=== PATIENT | female | born 1945 | race Caucasian/White ===

== ENCOUNTER → 2017-06-22 | Outpatient (CLI) | payer OTHER ==
[~2017-06-22] MED LIST: ACET-1256 PO; ATV5X PO; CZR50 PO; IBUP-1050 PO; LEVO50TA PO; SERT50TA PO; ULT50X PO
--- NOTE | 2017-06-22 11:58 | DIAGNOSTIC IMAGING REPORT ---
FLUOROSCOPICALLY GUIDED RIGHT HIP ANESTHETIC AND STEROID INJECTION CLINICAL HISTORY: DJD HIP right hip pain COMPARISON STUDY: Conventional radiographic study dated 05/11/2017 FLUOROSCOPY TIME: 10 seconds. NUMBER OF FLUOROSCOPIC IMAGES: 1 FINDINGS: A timeout was performed. The risks the procedure were explained the patient informed consent was obtained. The patient was prepped and draped in sterile fashion. The skin was best possible percent lidocaine. Under fluoroscopic guidance, 22-gauge spinal needle was introduced into the joint capsule. The location was documented with injection of Optiray 300. 2 cc of betamethasone, and 5 cc of 0.5% bupivacaine were then injected intra-articularly. The patient however the procedure well. There were no immediate complications. IMPRESSION: Successful fluoroscopically guided intra-articular right hip steroid and anesthetic injection. Electronically signed by: Eamon Lawrence M.D. 06/22/2017 11:56 AM Dictated Date/Time: 06/22/2017 11:55 AM
== END | disposition home or self-care (01) ==
LOC: C.RADBC 11:01
PROVIDERS: ATTEND Orthopaedic Surgery
DX: M16.11 Unilateral primary osteoarthritis, right hip (principal)

== ENCOUNTER 2017-09-09 06:34 | Inpatient (IN) | payer OTHER ==
[2017-07-27 13:24] VITALS: BMI 37.0
[2017-09-06 14:04] VITALS: BMI 38.0
--- NOTE | 2017-09-08 14:55 | HISTORY & PHYSICAL EXAMINATION ---
DATE OF ADMISSION: 09/09/2017 CHIEF COMPLAINT: Primary osteoarthritis of the right hip. HISTORY OF PRESENT ILLNESS: Geraldine is a pleasant 72-year-old female who has been having a several year history of right hip pain but it has got much worse over the past couple of months. X-rays and clinical examination have been diagnostic for primary osteoarthritis of the right hip. After failing extensive conservative treatment, she is elected to proceed with a right total hip arthroplasty. PAST MEDICAL HISTORY: Significant for hypothyroidism, depression, hypertension. MEDICATIONS: Include losartan, Zoloft, Synthroid, lorazepam, Celebrex. PAST SURGICAL HISTORY: Significant for a partial hysterectomy, tumors removed from her neck, right total knee arthroplasty, thyroid biopsy and a breast biopsy. ALLERGIES: NICKEL. FAMILY HISTORY: Significant for diabetes and heart disease. SOCIAL HISTORY: Patient is , has 4 kids. Remains active. REVIEW OF SYSTEMS: She complains of right hip pain. All the pertinent review of systems are negative. PHYSICAL EXAMINATION: GENERAL: She is awake, alert and orient x3. She is in no apparent distress. She is very pleasant. HEENT: Pupils equal, round, reactive to light. Extraocular movements are intact. Oral mucosa pink and moist. HEART: Regular rate per radial pulse. LUNGS: Maty symmetrically bilaterally with no audible breath sounds. ABDOMEN: Soft, nontender, nondistended. MUSCULOSKELETAL: On physical examination of her hip, she ambulates independently. Her leg lengths are essentially equal. She has limited internal and external rotation with reproducible symptoms deep within her groin. She has no tenderness to palpation of the greater trochanteric bursa. IMAGING DATA: X-rays of the right hip show advanced osteoarthritis with joint space narrowing, osteophyte formation and [id number] articulating. IMPRESSION: Primary osteoarthritis of the right hip. PLAN: We will proceed with a right lateral total hip arthroplasty. Postoperatively, she will be started on aspirin for DVT prophylaxis and kept in the hospital for postop medical management. She is planning to go to [facility] postoperatively for physical therapy.
[2017-09-09] VITALS (8 sets, daily range): BP systolic 92–147; BP diastolic 57–74; PULSE 57–78; TEMP 36.3–36.8; O2SAT 95–100; Ht 162.6 cm; Wt 100.4 kg
[~2017-09-09] VITALS: Ht 162.6 cm; Wt 100.4 kg
--- NOTE | 2017-09-09 06:32 | History & Physical Bridge Note ---
H&P Re-Evaluation Bridge Note: I have examined the patient, reviewed the History & Physical and in the interval since the performance of the History & Physical I have noted the following changes of clinical significance: No changes noted
[~2017-09-09 06:34] MED LIST changes: +ACETAMINOPHEN 500 MG TAB PO SCH; +CEFAZOLIN 2000MG IV PUSH 15 ML IV SCH; +CLB/200 PO; +FAMOTIDINE 20 MG TAB PO SCH; +GABAPENTIN 300 MG CAP PO SCH; -IBUP-1050 PO; +LACTATED RINGER'S 1000ML 1,000 ML IV SCH; +LACTATED RINGER'S 1000ML IV SCH; +LACTATED RINGER'S 500 ML IV SCH; +ROPIVACAINE 5MG/ML 30 ML 150 MG, BUPIVACAINE 0.5% MPF INJ 30 ML, EpINEphrine HCL INJ 0.... INFIL SCH; -ULT50X PO
[2017-09-09] MEDS ORDERED: EpHEDrine SULFATE INJ 50 MG/ML AMP IV PRN (07:15)
[2017-09-09] MEDS ORDERED: FENTANYL CITRATE INJ 50 MCG/1 ML 2 ML VIAL IV PRN (07:15)
[2017-09-09] MEDS ORDERED: ONDANSETRON INJ 2 MG/ML 2 ML VIAL IV PRN ×2 (07:15→11:00)
[2017-09-09] MEDS ORDERED: ATROPINE SULFATE 0.1 MG/ML 5ML SYR IV PRN (07:15)
[2017-09-09] MEDS ORDERED: BUPIVACAINE 0.5 % 5 MG/1 ML PF 10ML VIAL ONE (07:22)
[2017-09-09] MEDS ORDERED: MIDAZOLAM HCL 1 MG/ML 2ML VIAL ONE ×2 (07:42→08:45)
[2017-09-09] MEDS ORDERED: FENTANYL CITRATE INJ 50 MCG/1 ML 2 ML VIAL ONE (07:43)
[2017-09-09] MEDS: TRANEXAMIC ACID INJ 1,000 MG x 2 Bags IV SCH ×4 (08:57→13:51)
[2017-09-09] MEDS ORDERED: BACITRACIN 50000 UNIT VIAL ONE (08:58)
[2017-09-09] MEDS ORDERED: ORTHO JOINT ANESTHETIC ONE (08:58)
[2017-09-09] MEDS ORDERED: PROPOFOL IV EMULSION 10 MG/ML 20 ML VIAL ONE (09:24)
[2017-09-09] MEDS ORDERED: PHENYLEPHRINE HCL INJ 10 MG/ML VIAL ONE (09:24)
[2017-09-09] MEDS ORDERED: EpHEDrine SULFATE 50MG/5ML SYR ONE (09:38)
--- NOTE | 2017-09-09 10:57 | [facility] Post Operative Brief Note ---
Immediate Operative Summary Operative Date Sep 09, 2017. Pre-Operative Diagnosis Primary Osteoarthritis, Right Hip Post-Operative Diagnosis Primary Osteoarthritis, Right Hip Procedure(s) Performed Right Anterior Total Hip Arthroplasty Surgeon Dr. Buddy Rodriguez Scarrer Surgeon(s) Hilario Gutierrez PA-C Estimated Blood Loss 250ML Findings Consistent with Post-Op Diagnosis Specimens Permanent Solution: A.) Right Femoral Head Anesthesia Type Spinal MAC
[2017-09-09] MEDS ORDERED: SOD PHOSPHATE/SOD BIPHOSPHATE ENEMA 132 ML BTL PR PRN (11:00)
[2017-09-09] MEDS ORDERED: BISACODYL 10 MG SUPP PR PRN (11:00)
[2017-09-09] MEDS ORDERED: LORAZEPAM 0.5 MG TAB PO PRN (11:00)
[2017-09-09] MEDS ORDERED: MoRPHine SULFATE 2 MG/ML CARP IV PRN (11:00)
[2017-09-09] MEDS ORDERED: MAGNESIUM HYDROXIDE SUSP 30 ML UDC PO PRN (11:00)
[2017-09-09] MEDS ORDERED: CEFAZOLIN IV 2,000 MG in DEXTROSE 5% 50ML 50 ML IV SCH (11:00)
[2017-09-09] MEDS ORDERED: HYDROCODONE/ACETAMIN 5/325MG TAB PO PRN (11:00)
[2017-09-09] MEDS ORDERED: METOCLOPRAMIDE HCL INJ 5 MG/ML 2 ML VIAL IV PRN (11:00)
--- NOTE | 2017-09-09 11:28 | DIAGNOSTIC IMAGING REPORT ---
R HIP UNILATERAL 1 VIEW CLINICAL HISTORY: RT ANTERIOR TOTAL Fluoroscopy time: 43 seconds. FINDINGS: A single fluoroscopic spot image of the right hip was submitted. There is a right total arthroplasty. The femoral prosthesis tip is not entirely excluded on this study. The visualized hardware appears intact. No fracture or dislocation. IMPRESSION: Intraoperative study provided for a right total arthroplasty. The hardware appears intact. Electronically signed by: Kelby Waddell M.D. 09/09/2017 11:27 AM Dictated Date/Time: 09/09/2017 11:26 AM
--- NOTE | 2017-09-09 11:45 | DIAGNOSTIC IMAGING REPORT ---
R PELVIS/UNILATERAL HIP 1 VIEW HISTORY: 72 years-old Female IN PACU - A/P PELVIS and LATERAL HIP INCLUDING ALL OF IMPLANT right hip total joint arthroplasty. Degenerative joint disease. COMPARISON: Right hip fluoroscopic images 09/09/2017 at 10:43 AM TECHNIQUE: Single AP view of the pelvis with crosstable lateral view of the right hip FINDINGS: Right hip total joint arthroplasty with satisfactory alignment. Lateral skin debora are noted in addition to expected postsurgical soft tissue swelling and deep tissue air. No acute fracture or retained foreign body. Surgical drainage catheter noted. Moderate left hip osteoarthritis. There are phleboliths noted about the pelvis. IMPRESSION: Right hip total joint arthroplasty with satisfactory alignment. The above report was generated using voice recognition software. It may contain grammatical, syntax or spelling errors. Electronically signed by: Sandeep Martinez M.D. 09/09/2017 11:43 AM Dictated Date/Time: 09/09/2017 11:42 AM
--- NOTE | 2017-09-09 12:08 | OPERATIVE REPORT ---
DATE OF OPERATION: 09/09/2017 PREOPERATIVE DIAGNOSIS: Primary osteoarthritis of the right hip. POSTOPERATIVE DIAGNOSIS: Primary osteoarthritis of the right hip. PROCEDURE: Right total hip arthroplasty. SURGEON: Dr. Buddy Rodriguez. PATIENT SERVICES ASSISTANT: Yovani Gutierrez PA-C, whose assistance was necessary for retraction and closure. ANESTHESIA: Spinal. COMPLICATIONS: None. CONDITION: Stable to PACU. IMPLANTS USED: A [employer]omet Taperloc total hip arthroplasty system with a size 50 G7 cup, a 30 mm screw, a 36 mm neutral E-poly liner, a size 6 standard offset Taperloc stem, and a 36 mm ceramic head with a -6 neck. INDICATIONS: Geraldine is a pleasant 72-year-old female who presented to my office with chronic increasing right hip and groin pain. X-rays and clinical examination were diagnostic for primary osteoarthritis of the right hip. After failing conservative treatment, she elected to undergo a right total hip arthroplasty. OPERATION AND FINDINGS: On 09/09/2017, she arrived at [facility] for the above procedure. She was seen in the preoperative holding area and the operative extremity was identified and signed. She was given a spinal anesthetic and a preoperative antibiotic. She was taken back to the operating room, laid on the table in supine position and given basic sedation. The right leg was then brought out to a purist leg positioner. The right hip was then prepped and draped in sterile fashion. Time-out was done. The patient's operative extremity was properly identified. An anterior approach was used. Dissection was taken down through the fascia and the tensor muscle belly was retracted laterally and the rectus was retracted medially. The circumflex vessels were then ligated. The capsule was then incised and tagged for later repair. The femoral neck was then resected along the intertrochanteric line and the femoral head was removed. The acetabular labrum was then completely released and sequential reaming of the acetabulum up to a 49 reamer was done. Final reamings were done under fluoroscopy to ensure appropriate version. A size 50 G7 cup was then impacted into place. A single 30 mm screw was placed. A 36 mm neutral E-poly liner was then snapped into place. Surrounding soft tissues were injected with 100 mL of an orthopedic pain control cocktail. The proximal femur was then exposed. Sequential broaching up to a size 6 broach was done. A standard head and neck assembly was applied. The hip was reduced. I was happy with the size of the implants, but the leg was a little bit long. The hip was then dislocated. Trial implants were removed. The final size 6 Taperloc stem was then impacted into place. A 36 mm ceramic head with a -6 neck was then impacted into place. The hip was reduced. Final fluoroscopic images showed anatomic alignment and sizing the components. The wound was then irrigated with 3 liters normal saline solution with bacitracin. The capsule was closed with #1 Vicryl suture. Fascia was closed with #1 PDS. Skin was closed with 2-0 Vicryl and debora and Prevena VAC dressing. She was then placed into a hospital bed and taken to the postanesthesia care unit in stable condition. She tolerated the procedure well. I attest to the content of the Intraoperative Record and any orders documented therein. Any exception s are noted below.
--- NOTE | 2017-09-09 12:25 | Anesthesiology Progress Note ---
Anesthesia Post Op Note Date & Time Sep 09, 2017 at 12:24 Vital Signs Pain Intensity: 0 Vital Signs Past 12 Hours Date Time Temp Pulse Resp B/P (MAP) Pulse Ox O2 Delivery O2 Flow Rate FiO2 09/09/17 12:11 64 18 09/09/17 12:11 64 18 09/09/17 12:11 36.4 56 16 121/52 (67) 99 2 09/09/17 12:11 66 18 110/57 99 09/09/17 12:11 66 18 110/57 99 09/09/17 12:07 113/46 09/09/17 12:07 113/46 09/09/17 12:06 58 15 100 09/09/17 12:06 57 15 09/09/17 12:06 58 15 100 09/09/17 12:06 57 15 09/09/17 12:01 58 17 100/58 100 09/09/17 12:01 58 17 100/58 100 09/09/17 12:01 57 17 09/09/17 12:01 57 17 09/09/17 11:56 55 13 81/62 100 09/09/17 11:56 55 13 81/62 100 09/09/17 11:56 56 13 09/09/17 11:56 56 13 09/09/17 11:55 57 18 09/09/17 11:55 56 18 100 09/09/17 11:50 57 14 09/09/17 11:50 57 14 100 09/09/17 11:45 58 18 100 09/09/17 11:45 58 18 09/09/17 11:42 92/48 09/09/17 11:40 58 21 09/09/17 11:40 60 21 09/09/17 11:37 104/46 09/09/17 11:35 57 16 100 09/09/17 11:35 57 16 09/09/17 11:34 110/52 09/09/17 11:32 81/63 09/09/17 11:30 62 18 100 09/09/17 11:30 61 18 09/09/17 11:26 118/51 09/09/17 11:25 62 14 09/09/17 11:25 36.3 50 18 118/51 (63) 100 Oxymask 2 09/09/17 11:25 67 14 100 09/09/17 07:06 36.8 68 18 128/60 95 Room Air Notes Mental Status: alert / awake / arousable, participated in evaluation Pt Amnestic to Procedure: Yes Nausea / Vomiting: adequately controlled Pain: adequately controlled Airway Patency, RR, SpO2: stable & adequate BP & HR: stable & adequate Hydration State: stable & adequate Neuraxial Anesthesia: was administered, sensory block is resolving Anesthetic Complications: no major complications apparent
--- NOTE | 2017-09-09 13:19 | Discharge Instructions ---
Discharge Instructions Date of Service Sep 09, 2017. Admission Reason for Admission: Osteoarthritis Right Hip Discharge Discharge Diagnosis / Problem: Right Total Hip Discharge Goals Goal(s): Decrease discomfort, Improve function Activity Recommendations Activity Limitations: as noted below . Instructions / Follow-Up Instructions / Follow-Up Activity and Therapy Recommendations: * If you are using [facility] then Physical Therapy will be provided until they feel you are ready to start Outpatient Physical Therapy. If you are not using a Home Health agency then Outpatient Physical Therapy should start about 3-5 days from your day of surgery. Therapy will last about 3-6 weeks * You were shown a series of exercises in the hospital. Do these exercises three times each day including the exercises you were shown in physical therapy. * Get up and walk several times each day.~ For the first four weeks, try not to stand or walk for more than one hour at a time. If you do stand or walk for more than one hour, you will not hurt anything, but your leg will likely swell.~ ~ * As you feel comfortable, you may change from the walker or crutches to a cane and~then to independent walking. Medications: * Narcotic You will likely be sent home from the hospital with a prescription for the narcotic pain medication that worked best throughout your stay. * Aspirin Most patients will be required to take Aspirin 325mg twice a day for 6 weeks after surgery. This is obtained [id number] and a prescription is not necessary. * Other medications may be prescribed for specific circumstances. If you have any questions, please call the office at . * Resume previous home medications unless otherwise instructed TEDs/Elastic Stockings: The white elastic stockings help limit swelling and prevent blood clots from forming in your legs. The more you wear them, the more they work. Wear them for six weeks. Dressing Care: You will likely have a purple VAC dressing after surgery. This dressing will keep the incision dry and promote early healing. After about 8 days the batteries will wear out and the VAC will lose suction. Simply remove the dressing at that time and throw everything away, including the small suction machine. Then, you may leave the debora open to air or cover them with a dry dressing so they do not rub on your pants. The debora will be removed at your 2 week follow-up appointment. Showering: You may shower immediately with the purple VAC dressing. Let the shower spray hit your opposite side and slowly pat the plastic dry. Do not soak the dressing. After the dressing is removed you may shower normally with the debora exposed. Let soapy water run over the debora and pat them dry. Things To Watch For: * Drainage from the incision site that occurs more than one week after your surgery. * Increased redness at the incision site. * Fever above 102 degrees Fahrenheit. * Unusual chest pain or shortness of breath. * Call [facility] at with any of the above problems Follow-Up Visit: Follow-up with Dr. Rodriguez 2 weeks after your day of surgery. An appointment was probably scheduled when you signed-up for surgery in the office. If you have any questions call Office Instructions: More detailed instructions as well as Frequently Asked Questions were provided in a folder by our office when you signed-up for surgery. Please review these instructions when you get home. If you have any further questions or concerns, please feel free to call the office at [phone] Current Hospital Diet Patient's current hospital diet: Regular Diet Discharge Diet Recommended Diet: Regular Diet Procedures Procedures Performed: Right Anterior Total Hip Arthroplasty Pending Studies Studies pending at discharge: no Medical Emergencies . Who to Call and When: Medical Emergencies: If at any time you feel your situation is an emergency, please call [phone] immediately. . Non-Emergent Contact Non-Emergency issues call your: Surgeon Call Non-Emergent contact if: wound has increased drainage, wound has increased redness . "Provider Documentation" section prepared by Buddy Rodriguez. .
[2017-09-09] MEDS: SODIUM CHLORIDE 0.9% 1000ML 1,000 ML IV SCH ×2 (15:00→22:05)
[2017-09-09] MEDS: KETOROLAC TROMETHAMINE 15 MG/ML VIAL IV. SCH ×2 (16:10→22:06)
[2017-09-09] MEDS: CEFAZOLIN IV 2,000 MG in SYRINGE 0 ML IV SCH (16:54)
[2017-09-09] MEDS: DOCUSATE SODIUM 100 MG CAP PO SCH (19:58)
[2017-09-09] MEDS: ASPIRIN 325 MG ECTAB PO SCH (20:00)
[2017-09-09] MEDS ORDERED: LOSARTAN POTASSIUM 50 MG TAB PO SCH (21:00)
[2017-09-09] MEDS ORDERED: SENNA 8.6 MG TAB PO SCH (21:00)
[2017-09-09] MEDS ORDERED: SERTRALINE HCL 50 MG TAB PO SCH (21:00)
[2017-09-10] MEDS: CEFAZOLIN IV 2,000 MG in SYRINGE 0 ML IV SCH (02:42)
[2017-09-10 02:58] VITALS: BP 112/66; PULSE 88; TEMP 36.8; O2SAT 97
[2017-09-10] MEDS: KETOROLAC TROMETHAMINE 15 MG/ML VIAL IV. SCH ×2 (04:00→10:22)
[2017-09-10 05:52] LABS: BASO % 0.1 %; BASO ABS # 0.01 K/uL (0-0.2); HEMATOCRIT 37.9 % (37-47); HEMOGLOBIN 12.2 g/dL (12.0-16.0); IG# 0.03 K/uL (0.00-0.02); LYMPH % 9.3 %; LYMPH ABS # 1.43 K/uL (1.2-3.4); MEAN CORPUSCULAR HEMOGLOBIN 28.6 pg (25-34); MEAN CORPUSCULAR HGB CONC 32.2 g/dl (32-36); MEAN PLATELET VOLUME 10.1 fL (7.4-10.4); MONO % 9.5 %; MONO ABS # 1.46 K/uL (0.11-0.59); NEUT % 80.9 %; NEUT ABS # 12.46 K/uL (1.4-6.5); PLATELET COUNT 248 K/uL (130-400); RED CELL DISTRIBUTION WIDTH CV 12.6 % (11.5-14.5); RED CELL DISTRIBUTION WIDTH SD 40.3 fL (36.4-46.3); WHITE BLOOD COUNT 15.39 K/uL (4.8-10.8)
[2017-09-10] MEDS ORDERED: LEVOTHYROXINE 50 MCG TAB PO SCH (06:00)
[2017-09-10 06:20] LABS: CALCIUM 8.9 mg/dl (8.5-10.1); CREATININE 0.95 mg/dl (0.60-1.20)
[2017-09-10] MEDS: SODIUM CHLORIDE 0.9% 1000ML 1,000 ML IV SCH (06:57)
[2017-09-10] MEDS: TRAMADOL HCL 50 MG TAB PO PRN ×3 (07:12→12:24)
[2017-09-10 07:57] VITALS: BP 133/73; PULSE 72; TEMP 36.8; O2SAT 97
[2017-09-10] MEDS ORDERED: ASPEC325 PO (08:11)
[2017-09-10] MEDS ORDERED: ULT50X PO (08:11)
[2017-09-10] MEDS: DOCUSATE SODIUM 100 MG CAP PO SCH (08:39)
[2017-09-10] MEDS: ASPIRIN 325 MG ECTAB PO SCH (08:39)
[2017-09-10 08:42] VITALS: BP 133/73; PULSE 72; TEMP 36.8; O2SAT 97
[2017-09-10] MEDS ORDERED: MULTIVITAMIN TAB PO SCH (09:00)
--- NOTE | 2017-09-10 09:10 | PROGRESS NOTE ---
DATE: 09/10/2017 CHIEF COMPLAINT: Status post right total hip arthroplasty, postop day #1. SUBJECTIVE: Geraldine was seen and examined at bedside today. Overall, she is doing very well. She was actually sitting up in a chair. She has already walked around the nurses' station. She is having a little soreness in her hip. She is urinating frequently, otherwise she has no complaints. She is voiding on her own. PHYSICAL EXAMINATION: On examination of the right hip, the Prevena VAC dressing is to suction. Her leg lengths are equal. She has active dorsiflexion and plantarflexion of her right ankle, and sensation is intact throughout. Her vital signs are all stable on room air. LABORATORY DATA: She has an H&H today of 12.2 and 37.9. Her glucose is 135. IMAGING: X-rays postoperatively of the right hip showed the prosthesis to be in anatomic alignment without any obstruction, dislocation, or loosening. IMPRESSION: Status post right total hip arthroplasty, postop day #1. PLAN: At this point, she is doing very well. She is happy with her progress. Will continue the tramadol for pain control and aspirin for DVT prophylaxis. She is going to be discharged to home later this morning with outpatient physical therapy at [facility].
[2017-09-10 11:01] VITALS: BP 113/72; PULSE 70; TEMP 36.9; O2SAT 96
--- NOTE | 2017-09-12 08:00 | DISCHARGE SUMMARY ---
DISCHARGE DIAGNOSIS: Primary osteoarthritis of the right hip. PROCEDURE: Right anterior total hip arthroplasty on 09/09/[address] Buddy Rodriguez. DISCHARGE INSTRUCTIONS: 1. Aspirin 325 mg twice a day for 6 weeks. 2. TOMAS hose stockings for 6 weeks. 3. Tramadol 50-100 mg every 4 hours as needed for pain. 4. Tylenol as needed for pain. 5. Celebrex 200 mg at night. 6. Synthroid 50 mcg daily. 7. Lorazepam 0.5 mg 3 times a day as needed. 8. Losartan 50 mg daily. 9. Zoloft 50 mg daily. 10. Follow up with Dr. Rodriguez in 2 weeks. 11. Call the office of Dr. Rodriguez with any questions or concerns. HOSPITAL COURSE: Geraldine is a pleasant 72-year-old female who presented to my office with chronic increasing right hip and groin pain. X-rays and clinical examination were diagnostic for primary osteoarthritis of the right hip. After failing conservative treatment, she elected to undergo a right total hip arthroplasty. On 09/09/2017, she arrived at [facility] and underwent a right anterior total hip arthroplasty without complication. She had a spinal anesthetic. Postoperatively, she was started on aspirin for DVT prophylaxis and discharged to general orthopedic floor. Her hospital course was uneventful. On postop day #1, her H and H was stable at 12.2 and 37.9. She was up and ambulating well with physical therapy and her pain was well controlled. She was subsequently discharged to home with outpatient general physical therapy and the above instructions.
== END 2017-09-10 13:00 | disposition home health service (06) | DRG 470 ==
LOC: C.ACU 06:34 → C.3E 06:45 → ENRESERV 12:19
PROVIDERS: ADMIT Orthopaedic Surgery; ATTEND Orthopaedic Surgery
PROC: 0SR904Z Replacement of Right Hip Joint with Ceramic on Polyethylene Synthetic Substitute, Open Approach (ICD-10-PCS; principal; 2017-09-09 09:00)
DX: M16.11 Unilateral primary osteoarthritis, right hip (principal); E03.9 Hypothyroidism, unspecified; F32.9 Major depressive disorder, single episode, unspecified; Z96.651 Presence of right artificial knee joint